=== PATIENT | male | born 1995 | race Caucasian/White ===

== ENCOUNTER 2018-10-10 19:49 | Emergency (ER) | payer BC, OTHER ==
[~2018-10-10] VITALS: Ht 190.5 cm; Wt 111.1 kg
--- NOTE | 2018-10-10 20:09 | ED Upper Extremity ---
General Chief Complaint: Laceration Stated Complaint: LEFT THUMB LACERATION Nursing Triage Note: Patient reports a laceration on his L thumb. states was cutting corn on the cob and the knife slipped. Nursing Sepsis Screen: No Definite Risk Source: patient Exam Limitations: no limitations History of Present Illness Date Seen by Provider: Oct 10, 2018 Time Seen by Provider: 20:05 Initial Comments 23-year-old male patient presents to the emergency department with complaints of laceration to the left thumb while cutting corn on the cob. Patient denies numbness or tingling. Denies weakness. Injury occurred just prior to arrival. Location Injury Occurred: home Onset: just prior to arrival Pain/Injury Location: left thumb Method of Injury: incised Allergies and Home Medications Allergies Coded Allergies: No Known Drug Allergies (Unverified , 10/10/18) Home Medications No Active Prescriptions or Reported Meds Patient Home Medication List Home Medication List Reviewed: Yes Review of Systems Constitutional: no symptoms reported Musculoskeletal: No joint pain, No joint swelling Skin: see HPI Psychiatric/Neurological: Denies Numbness, Denies Paresthesia, Denies Tingling, Denies Weakness All Other Systems Reviewed Negative Unless Noted: Yes (Negative excepted noted.) Past Fgtekwi-Kaoeal-Xyppxr Hx Past Med/Social Hx: Reviewed Nursing Past Med/Soc Hx Patient Social History Alcohol Use: Occasionally Uses Number of Drinks Today: 3 Alcohol Beverage of Choice: Beer Recreational Drug Use: No 2nd Hand Smoke Exposure: No Recent Foreign Travel: No Contact w/Someone Who Travel: No Recent Infectious Disease Expo: No Immunizations Up To Date Tetanus Booster (TDap): Less than 5yrs (2016) Past Medical History Surgeries: Yes (heart ) Respiratory: No Cardiac: Yes Heart Murmur Neurological: No Genitourinary: No Gastrointestinal: No Musculoskeletal: No Endocrine: No HEENT: No Cancer: No Psychosocial: No Blood Disorders: No Family Medical History Reviewed Nursing Family Hx No Pertinent Family Hx Physical Exam Vital Signs Vital Signs - First Documented 10/10/18 19:56 Temp 98.2 Pulse 69 Resp 18 B/P (MAP) 148/96 (113) Pulse Ox 100 Capillary Refill : Less Than 3 Seconds Height, Weight, BMI Height: 6'3.00" Weight: 245lbs. oz. 111.314174dc; BMI Method:Stated General Appearance: WD/WN, no apparent distress Cardiovascular: normal peripheral pulses Shoulder: normal inspection, non-tender, no evidence of injury, normal ROM Elbow/Forearm: normal inspection, non-tender, no evidence of injury, normal ROM, Right Wrist: Yes normal inspection, Yes non-tender, Yes no evidence of injury, Yes normal ROM Hand: normal ROM, Left, laceration (2 centimeter laceration to the medial left thumb), soft tissue tenderness Neurologic/Tendon: normal sensation (2 point discrimination intact), normal motor functions, normal tendon functions, responds to pain, no evidence tendon injury Neurologic/Psychiatric: no motor/sensory deficits, alert, normal mood/affect, oriented x 3 Skin: normal color, warm/dry; No cyanosis, No cool, No ecchymosis; other (2 centimeter laceration to the medial left thumb) Procedures/Interventions Wound Location: Upper Extremities (left thumb) Wound Length (cm): 2 Wound's Depth, Shape: superficial, linear, sub Q Betadine Prep?: Yes Anesthesia: 1% Lidocaine (1:1 ratio of 1% lidocaine with 0.5% marcaine ) Volume Anesthetic (ccs): 4 Suture: Prolene Suture Size: 4-0 Number of Sutures: 3 Layer Closure?: 1 Sterile Dressing Applied?: Yes Progress patient tolerated the procedure well. blood loss minimal. bandage applied. Progress/Results/Core Measures Results/Orders My Orders Orders - PRADEEP HART Bupivacaine 0.5% Injection (Sensorcaine (10/10/18 20:15) Lidocaine 1% Inj 20 Ml (Xylocaine 1% Inj (10/10/18 20:15) Medications Given in ED Current Medications Medications Dose Ordered Sig/Kandice Route Start Time Stop Time Status Last Admin Dose Admin Bupivacaine HCl 30 ml ONCE ONCE INJ 10/10/18 20:15 10/10/18 20:16 DC 10/10/18 20:50 30 ML Lidocaine HCl 20 ml ONCE ONCE INJ 10/10/18 20:15 10/10/18 20:16 DC 10/10/18 20:52 20 ML Vital Signs/I&O 10/10/18 19:56 Temp 98.2 Pulse 69 Resp 18 B/P (MAP) 148/96 (113) Pulse Ox 100 Blood Pressure Mean: 113 Departure Communication (Admissions) Patient seen, evaluated, and wound repair performed. Plan for discharge to home. Impression Primary Impression: Laceration of thumb Qualified Codes: S61.012A - Laceration without foreign body of left thumb without damage to nail, initial encounter Disposition: 01 HOME, SELF-CARE Condition: Improved Departure-Patient Inst. Decision time for Depature: 20:08 Referrals: NO,LOCAL PHYSICIAN (PCP) Primary Care Physician Patient Instructions: Laceration Repair With Stitches (DC) Add. Discharge Instructions: All discharge instructions reviewed with patient and/or family. Voiced understanding. Tylenol extra strength [id number] as directed for pain. Ibuprofen 800 mg by mouth every 8 hours as needed for pain. Tomorrow morning begin showering with antibacterial soap. Apply triple antibiotic ointment twice daily for 3 days and cover with a bandage. Return to the emergency department in 7 days for suture removal. Ice packs as needed. Follow-up with your family practitioner if needed. Return to the emergency department for worsened symptoms or any other concerns. Scripts No Active Prescriptions or Reported Meds Images Extremities-Upper 1 - 2 cm laceration to the distal left thumb PRADEEP HART Oct 10, 2018 20:09
[2018-10-10] MEDS ORDERED: BUPIVACAINE 0.5% 30 ML (SENSORCAINE) VIAL INJ ONE (20:15)
[2018-10-10] MEDS ORDERED: LIDOCAINE 1% INJ 20 ML 20 ML VIAL INJ ONE (20:15)
[2018-10-10 21:18] VITALS: BP 148/96
== END 2018-10-10 21:18 | disposition home or self-care (01) ==
LOC: ER 19:52
DX: S61.012A Laceration without foreign body of left thumb without damage to nail, initial encounter (principal); W26.0XXA Contact with knife, initial encounter; Y92.009 Unspecified place in unspecified non-institutional (private) residence as the place of occurrence of the external cause
CPT/HCPCS: 12001; 12011